=== PATIENT | female | born 1980 | race Two or more races ===

== ENCOUNTER 2017-01-04 05:54 | Emergency (ER) | payer BC ==
[~2017-01-04] VITALS: Ht 160 cm; Wt 110.6 kg
[2017-01-04] MEDS ORDERED: SODIUM CHLORIDE FLUSH 10ML SYR IVF ONE (06:30)
[2017-01-04] MEDS ORDERED: SODIUM CHLORIDE 0.9% 1,000ML IVBOLUS ONE (06:30)
[2017-01-04] MEDS ORDERED: ONDANSETRON 2MG/ML, 2ML IVPush ONE (06:30)
[2017-01-04] MEDS ORDERED: MORPHINE SULFATE 4 MG/ML, 1ML IVPush PRN (06:30)
[2017-01-04 06:45] LABS: HCG UR OBC PASS
[2017-01-04] MEDS ORDERED: ONDANSETRON 2MG/ML, 2ML ONE (06:48)
[2017-01-04] MEDS ORDERED: MORPHINE SULFATE 4 MG/ML, 1ML ONE (06:48)
[2017-01-04 07:21] LABS: ASPARTATE AMINO TRANSFERASE 21 U/L (15-37); BLOOD UREA NITROGEN 12 mg/dL (7-18)
[2017-01-04 08:14] VITALS: BP 93/47
== END 2017-01-04 08:15 | disposition home or self-care (01) ==
LOC: ED 07:40
DX: K29.00 Acute gastritis without bleeding (principal)
CPT/HCPCS: 36415; 76700; 80053; 81001; 81025; 83690; 85025; 93005; 96361; 96374; 96375; J2405; J7030

== ENCOUNTER 2017-02-21 18:32 | Emergency (ER) | payer BC, OTHER ==
[~2017-02-21] VITALS: Ht 167.6 cm; Wt 111.4 kg
[2017-02-21 18:41] VITALS: BP 115/78
== END 2017-02-21 21:22 | disposition home or self-care (01) ==
LOC: ED 21:16
DX: S16.1XXA Strain of muscle, fascia and tendon at neck level, initial encounter (principal); S20.212A Contusion of left front wall of thorax, initial encounter; V89.2XXA Person injured in unspecified motor-vehicle accident, traffic, initial encounter; Y93.I9 Activity, other involving external motion; Y92.488 Other paved roadways as the place of occurrence of the external cause; Y99.8 Other external cause status
CPT/HCPCS: 72020; 72050; 72110; 99284